=== PATIENT | female | born 1995 | race Caucasian/White ===

== ENCOUNTER 2019-10-27 18:20 | Emergency (ER) | payer BC ==
[2019-10-27] MEDS ORDERED: ONDANSETRON HCL INJ/PF 4 MG/2 ML SDV IV ONE ×2 (20:18→23:07)
--- NOTE | 2019-10-27 20:25 | ER Document Report ---
ED Medical Screen (RME) - General Chief Complaint: Nausea/Vomiting Stated Complaint: VOMITING Time Seen by Provider: 10/27/19 20:12 TRAVEL OUTSIDE OF THE [place] IN LAST 30 DAYS: No - HPI Notes: 10/27/19 20:24 24-year-old female to the emergency department with complaints of nausea and vomiting that has been ongoing for over 1 week. She states that she initially started with left upper quadrant abdominal pain. She presented to an urgent care and was tested for H. pylori. She states that it came back positive. She states she does have a history of GERD but has never been diagnosed with H. pylori before. She states she was started on Flagyl, clarithromycin, and amoxicillin. She states that since she has been starting those antibiotics she has had increasingly worsening vomiting. She states she cannot count how many times she is vomited today. She cannot keep anything down. She has a heart rate in triage today of 124. She denies any fevers or chills. She states now her entire upper abdomen is hurting her. I performed a brief medical screening exam on the patient determined that she will need further evaluation and management by main side provider. I have placed initial orders to joiner helper in her treatment plan tonight. - Related Data Allergies/Adverse Reactions: insect venom Allergy (Verified 10/27/19 20:12) beeswax Adverse Reaction (Verified 10/27/19 20:12) Home Medications: Omeprazole, Amoxicillin, Calrithyromycin, Metronidazole Physical Exam - Vital signs Vitals: Temp Pulse Resp BP Pulse Ox 98.3 F 124 H 22 H 144/87 H 100 10/27/19 18:24 10/27/19 18:24 10/27/19 18:24 10/27/19 18:24 10/27/19 18:24 Course - Vital Signs Vital signs: Temp Pulse Resp BP Pulse Ox 98.3 F 124 H 22 H 144/87 H 100 10/27/19 18:24 10/27/19 18:24 10/27/19 18:24 10/27/19 18:24 10/27/19 18:24
[2019-10-27] MEDS: NORMAL SALINE 1000 ML 1,000 ML IV PRN ×2 (20:55→22:20)
[2019-10-27 20:59] LABS: ABSOLUTE NEUT (AUTO) 13.6 10^3/uL (1.7-8.2); BASOPHILS % (AUTO) 0.3 % (0-2); EOSINOPHILS % (AUTO) 0.3 % (0-6); HEMATOCRIT 39.8 % (36.0-47.0); HEMOGLOBIN 13.9 g/dL (12.0-15.5); LYMPHOCYTES % (AUTO) 11.9 % (13-45); MEAN CORPUSCULAR HGB CONC 34.9 g/dL (32.0-36.0); MEAN CORPUSCULAR VOLUME 86 fl (80-97); PLATELET COUNT 309 10^3/uL (150-450); RED BLOOD COUNT 4.63 10^6/uL (3.72-5.28); RED CELL DISTRIBUTION WIDTH 12.1 % (11.5-14.0); SEGMENTED NEUTROPHILS % (AUTO) 81.5 % (42-78); TOTAL CELLS COUNTED % (AUTO) 100 %; WHITE BLOOD COUNT 16.6 10^3/uL (4.0-10.5)
[2019-10-27 21:22] LABS: ALBUMIN 4.3 g/dL (3.5-5.0); ALKALINE PHOSPHATASE 66 U/L (38-126); ANION GAP 15 (5-19); ASPARTATE AMINO TRANSFERASE 15 U/L (14-36); BILIRUBIN,TOTAL 0.4 mg/dL (0.2-1.3); BLOOD UREA NITROGEN 9 mg/dL (7-20); CALCIUM 9.8 mg/dL (8.4-10.2); CARBON DIOXIDE 22 mmol/L (22-30); CHLORIDE 102 mmol/L (98-107); GLUCOSE 79 mg/dL (75-110); POTASSIUM 4.4 mmol/L (3.6-5.0); TOTAL PROTEIN 7.4 g/dL (6.3-8.2)
[2019-10-27] MEDS ORDERED: ACETAMINOPHEN 325 MG TABLET PO ONE (22:15)
--- NOTE | 2019-10-27 22:39 | ER Document Report ---
ED GI/ - General Chief Complaint: Nausea/Vomiting Stated Complaint: VOMITING Time Seen by Provider: 10/27/19 20:12 Notes: Patient is a 24-year-old female who presents to the emergency department with a chief complaint of upper abdominal pain. Patient was recently diagnosed with H. pylori by urgent care and was placed on Flagyl, clarithromycin, and amoxicillin. Patient states that since starting the antibiotic she was able to keep the an tibiotics down, but has vomited multiple times today. Patient also received fluids and Zofran in triage and states that she does feel better, but does have a little bit of pain. She has not vomited since she has been here. TRAVEL OUTSIDE OF THE [place] IN LAST 30 DAYS: No - Related Data Allergies/Adverse Reactions: insect venom Allergy (Verified 10/27/19 20:12) beeswax Adverse Reaction (Verified 10/27/19 20:12) Home Medications: Omeprazole, Amoxicillin, Calrithyromycin, Metronidazole Past Medical History - Social History Smoking Status: Current Every Day Smoker Family History: Reviewed & Not Pertinent Patient has suicidal ideation: No Patient has homicidal ideation: No Review of Systems - Review of Systems Notes: REVIEW OF SYSTEMS: CONSTITUTIONAL : Denies recent illness. Denies recent unintentional weight loss. Denies fever, chills, or sweats. EENT: Denies eye, ear, throat, or mouth pain, discharge, or symptoms. Denies nasal or sinus congestion. CARDIOVASCULAR: Denies chest pain. RESPIRATORY: Denies shortness of breath, cough, congestion, difficulty breathing, or wheezing. GASTROINTESTINAL: See HPI. GENITOURINARY: Denies difficulty urinating, burning, blood in urine, urgency or frequency. MUSCULOSKELETAL: Denies neck and back pain. Denies joint pain or swelling. SKIN: Denies rash, itchiness, or lesions HEMATOLOGIC : Denies easy bruising or bleeding. LYMPHATIC: Denies swollen, painful, enlarged glands. NEUROLOGICAL: Denies no numbness or tingling denies weakness. Denies headache. Denies altered mental status. Denies alteration in speech. PSYCHIATRIC: Denies stress, anxiety, alteration in sleep patterns, or depression. All other systems reviewed and negative. Physical Exam - Vital signs Vitals: Temp Pulse Resp BP Pulse Ox 98.3 F 124 H 22 H 144/87 H 100 10/27/19 18:24 10/27/19 18:24 10/27/19 18:24 10/27/19 18:24 10/27/19 18:24 - Notes Notes: PHYSICAL EXAMINATION: GENERAL: Appears well, healthy, well-nourished, no acute distress. HEAD: Normocephalic, atraumatic. EYES: PERRL, conjunctiva normal, all extraocular movements intact, sclera nonicteric ENT: Dry mucous membranes. NECK: Supple, no noticeable swelling, redness, rash. Normal range of motion. LUNGS: Equal breath sounds bilaterally and clear to auscultation. No wheezes rales or rhonchi. CARDIOVASCULAR: S1-S2, regular rate, regular rhythm. Radial pulses 2+, normal. ABDOMEN: Normoactive bowel sounds. Soft, mildly tender left upper abdomen, no guarding, no rebound tenderness, and no masses palpated. EXTREMITIES: Normal strength and range of motion, no pitting or edema. No cyanosis. NEUROLOGICAL: Moves all extremities upon command. Strength 5/5 in all extremities. PSYCH: Normal mood, normal affect. SKIN: Warm, dry. No rash, lesions, ulcerations noted. Normal skin turgor. Course - Re-evaluation Re-evalutation: 10/27/19 23:06 Patient has a leukocytosis of 16,600 with a shift to the left. Her chemistries are unremarkable and her hCG is negative. Urinalysis shows a large amount of leukocytes, consistent with a urinary tract infection. Patient denies any vaginal discharge. Her urine will be sent for culture.She states that she feels better with Zofran. She will be sent home with Zofran Dosepak. Patient presents with symptoms consistent with an acute cystitis. Vitals wnl. No history of fever, flank pain, or constitution symptoms to suggest ascending infection at this time. Patient is well in appearance, tolerating oral intake without difficulty. No focal abdominal tenderness to suggest acute appendicitis, biliary pathology, acute pancreatitis, tubo-ovarian abscesses, or pelvic inflammatory disease. Patient will be started on antibiotics at this time. A culture has been sent. They will be discharged with return precautions and follow-up recommendations. - Vital Signs Vital signs: Temp Pulse Resp BP Pulse Ox 98.6 F 90 22 H 127/66 H 100 10/27/19 22:38 10/27/19 23:21 10/27/19 18:24 10/27/19 23:21 10/27/19 23:21 - Laboratory Result Diagrams: 10/27/19 20:35 10/27/19 20:35 Laboratory results interpreted by me: 10/27/19 10/27/19 20:35 20:35 WBC 16.6 H Lymph % (Auto) 11.9 L Absolute Neuts (auto) 13.6 H Seg Neutrophils % 81.5 H Urine Ketones 20 H Ur Leukocyte Esterase LARGE H Urine Ascorbic Acid 20 H Discharge - Discharge Clinical Impression: Nausea and vomiting Qualifiers: Vomiting type: unspecified Vomiting Intractability: non-intractable Qualified Code(s): R11.2 - Nausea with vomiting, unspecified Abdominal pain Qualifiers: Abdominal location: left upper quadrant Qualified Code(s): R10.12 - Left upper quadrant pain Urinary tract infection Qualifiers: Urinary tract infection type: acute cystitis Hematuria presence: without hematuria Qualified Code(s): N30.00 - Acute cystitis without hematuria Condition: Stable Disposition: HOME, SELF-CARE Instructions: Antinausea Medication ([facility]), Intravenous (IV) Fluids ([facility]), Vomiting ([facility]) Additional Instructions: Your urine shows findings consistent with a urinary tract infection. Please take all the antibiotics as directed even if your symptoms have improved. Please follow-up with your primary care physician as needed. Return to emergency room if you develop fever >101F, persistent vomiting, become lethargic, have severe pain in your sides, or any other symptoms that are concerning to you. You are also being sent home with Zofran, medication for nausea. You can take 1-2 tabs every 4 hours as needed for nausea and vomiting. Please stop taking your amoxicillin and replace it with the Keflex that is prescribed to you today. Prescriptions: Cephalexin [Keflex] 500 mg PO BID #14 capsule Ondansetron [Zofran Odt 4 mg Tablet] 1 - 2 tab PO Q4H PRN #15 tab.rapdis PRN Reason: For Nausea/Vomiting
[2019-10-27 22:47] LABS: APPEARANCE,URINE CLOUDY; BILIRUBIN,URINE NEGATIVE (NEGATIVE); COLOR,URINE YELLOW; GLUCOSE, URINE NEGATIVE (NEGATIVE); KETONES,URINE 20 mg/dL (NEGATIVE); LEUKOCYTE ESTERASE,URINE LARGE (NEGATIVE); NITRITE,URINE NEGATIVE (NEGATIVE); PROTEIN,URINE NEGATIVE (NEGATIVE); URINE SPECIFIC GRAVITY 1.013; UROBILINOGEN,URINE NEGATIVE mg/dL (<2.0)
[2019-10-27] MEDS ORDERED: CEPHALEXIN 500 MG CAPSULE PO ONE (23:07)
[2019-10-27 23:24] VITALS: BP 127/66
== END 2019-10-27 23:25 | disposition home or self-care (01) ==
LOC: ER 18:20
DX: N30.00 Acute cystitis without hematuria (principal); R10.12 Left upper quadrant pain; R10.812 Left upper quadrant abdominal tenderness; R11.2 Nausea with vomiting, unspecified; F17.200 Nicotine dependence, unspecified, uncomplicated; Z91.038 Other insect allergy status; Z79.899 Other long term (current) drug therapy
CPT/HCPCS: 96376; 99284; 96361; 96374; 36415; 87086; 83690; 84703; 85025; 80053; 81001; J2405; J7030

== ENCOUNTER 2020-02-07 16:15 | Emergency (ER) | payer BC, OTHER ==
--- NOTE | 2020-02-07 16:35 | ER Document Report ---
ED Medical Screen (RME) - General Stated Complaint: DIZZINESS Time Seen by Provider: 02/07/20 16:30 Mode of Arrival: Ambulatory Information source: Patient Notes: 24-year-old female G1, P0 presents with right-sided flank pain that started at approximately noon today. Patient reports she woke up and felt dizzy. She laid down hoping she would feel better but she did not. She reports she has vomited 1 time today but that is not unusual since the . She has only ate 1 time today also. Denies pain with void. Denies vaginal bleeding. Denies fever or diarrhea. I have greeted and performed a rapid initial assessment of this patient. A comprehensive ED assessment and evaluation of the patient, analysis of test results and completion of the medical decision making process will be conducted by additional ED providers. TRAVEL OUTSIDE OF THE [place] IN LAST 30 DAYS: No - Related Data Allergies/Adverse Reactions: insect venom Allergy (Verified 10/27/19 20:12) beeswax Adverse Reaction (Verified 10/27/19 20:12) Physical Exam - Vital signs Vitals: Temp Pulse Resp BP Pulse Ox 98.1 F 84 14 141/85 H 98 02/07/20 16:20 02/07/20 16:20 02/07/20 16:20 02/07/20 16:20 02/07/20 16:20 Course - Vital Signs Vital signs: Temp Pulse Resp BP Pulse Ox 98.1 F 84 14 141/85 H 98 02/07/20 16:20 02/07/20 16:20 02/07/20 16:20 02/07/20 16:20 02/07/20 16:20
[2020-02-07 16:58] LABS: ABSOLUTE LYMPHOCYTES (AUTO) 1.5 10^3/uL (0.5-4.7); ABSOLUTE MONOCYTES (AUTO) 0.6 10^3/uL (0.1-1.4); BASOPHILS % (AUTO) 0.2 % (0-2); EOSINOPHILS % (AUTO) 0.2 % (0-6); HEMATOCRIT 39.4 % (36.0-47.0); HEMOGLOBIN 13.7 g/dL (12.0-15.5); LYMPHOCYTES % (AUTO) 21.3 % (13-45); MEAN CORPUSCULAR HEMOGLOBIN 30.5 pg (27.0-33.4); MEAN CORPUSCULAR HGB CONC 34.8 g/dL (32.0-36.0); MEAN CORPUSCULAR VOLUME 88 fl (80-97); MONOCYTES % (AUTO) 8.8 % (3-13); PLATELET COUNT 227 10^3/uL (150-450); RED CELL DISTRIBUTION WIDTH 12.9 % (11.5-14.0); SEGMENTED NEUTROPHILS % (AUTO) 69.5 % (42-78); TOTAL CELLS COUNTED % (AUTO) 100 %; WHITE BLOOD COUNT 7.2 10^3/uL (4.0-10.5)
[2020-02-07 17:15] LABS: ALBUMIN 4.4 g/dL (3.5-5.0); ALKALINE PHOSPHATASE 45 U/L (38-126); ANION GAP 8 (5-19); ASPARTATE AMINO TRANSFERASE 15 U/L (14-36); BILIRUBIN,TOTAL 0.3 mg/dL (0.2-1.3); BLOOD UREA NITROGEN 5 mg/dL (7-20); CALCIUM 9.9 mg/dL (8.4-10.2); CARBON DIOXIDE 26 mmol/L (22-30); CHLORIDE 103 mmol/L (98-107); GLUCOSE 94 mg/dL (75-110); POTASSIUM 4.5 mmol/L (3.6-5.0); TOTAL PROTEIN 7.6 g/dL (6.3-8.2)
--- NOTE | 2020-02-07 17:33 | RADIOLOGY REPORT (SQ) ---
EXAM DESCRIPTION: U/S [id number] TRNABD 1GES W/ODOP IMAGES COMPLETED DATE/TIME: 02/07/2020 5:23 pm REASON FOR STUDY: flank pain COMPARISON: None. TECHNIQUE: Transabdominal static and realtime grayscale images acquired of the pelvis. Additional se lected spectral and color Doppler images recorded. All images stored on PACs. bHCG: Not available. CLINICAL DATES: 10 weeks 2 days LIMITATIONS: None. FINDINGS: FETUS: Single Living intrauterine . ULTRASOUND EGA: 10 weeks 6 days ULTRASOUND FABIENNE: 08/29/2020 EFW: Not applicable less than 20 weeks. CRL: 4 cm FHR: 169 beats per minute. SURVEY: Too early to assess. AMNIOTIC FLUID: Adequate amount. PLACENTA: Not yet developed due to early gestation. SUBCHORIONIC BLEED: No SIZE OF BLEED: Not applicable. UTERUS: No masses. No anomalies. CERVICAL LENGTH: 4.1 cm Closed. RIGHT ADNEXA: Normal ovary with normal vascular flow. No adnexal free fluid. No adnexal masses. LEFT ADNEXA: Normal ovary with normal vascular flow. No adnexal free fluid. No adnexal masses. FREE FLUID: None. OTHER: No other significant finding. IMPRESSION: LIVING INTRAUTERINE . EGA 10 weeks 6 days Trimester of : First trimester - 0 to 13 weeks. TECHNICAL DOCUMENTATION: JOB ID: [id number] 2010 [employer]- All Rights Reserved rev-02/16 Reading location - IP/workstation name: [email or web address]
[2020-02-07] MEDS ORDERED: AMOXICILLIN TRIHYDRATE 500 MG CAPSULE PO ONE (17:45)
[2020-02-07] MEDS ORDERED: RINGERS SOLUTION,LACTATED 1,000 ML IV ONE (18:21)
[2020-02-07 19:04] LABS: APPEARANCE,URINE CLOUDY; BILIRUBIN,URINE NEGATIVE (NEGATIVE); COLOR,URINE YELLOW; GLUCOSE, URINE NEGATIVE (NEGATIVE); KETONES,URINE TRACE mg/dL (NEGATIVE); LEUKOCYTE ESTERASE,URINE SMALL (NEGATIVE); NITRITE,URINE NEGATIVE (NEGATIVE); PROTEIN,URINE NEGATIVE (NEGATIVE); URINE SPECIFIC GRAVITY 1.009; UROBILINOGEN,URINE NEGATIVE mg/dL (<2.0)
[2020-02-07] MEDS ORDERED: ACETAMINOPHEN 325 MG TABLET PO ONE (19:15)
[2020-02-07] MEDS ORDERED: ONDANSETRON HCL INJ/PF 4 MG/2 ML SDV IV ONE (19:15)
--- NOTE | 2020-02-07 20:25 | ER Document Report ---
ED Dizziness/Weakness - General Chief Complaint: Dizziness Stated Complaint: DIZZINESS Time Seen by Provider: 02/07/20 16:30 Primary Care Provider: AMARIS GRAY MD [ACTIVE PROVISIONAL STAFF] - Follow up in 1 week (call for an appointment) Mode of Arrival: Ambulatory Information source: Patient Notes: 24-year-old female with no previous medical problems who states she is approximately 6 weeks . No care. Did home test. Presents to the emergency room complaining of dizziness that started yesterday increases with movement. Feels like the room is spinning. Denies any head trauma or head injury. Also complains of nausea with vomiting which she states is chronic since she found out she was . She is a 1 para 0. A lso complaining of some pain to her right lower back. She denies fevers. No urinary symptoms. No medications for her symptoms. TRAVEL OUTSIDE OF THE [place] IN LAST 30 DAYS: No - Related Data Allergies/Adverse Reactions: insect venom Allergy (Verified 10/27/19 20:12) beeswax Adverse Reaction (Verified 10/27/19 20:12) Past Medical History - General Information source: Patient - Social History Smoking Status: Former Smoker Frequency of alcohol use: None Drug Abuse: None Lives with: Family Family History: Reviewed & Not Pertinent Patient has homicidal ideation: No Review of Systems - Review of Systems Constitutional: No symptoms reported EENT: No symptoms reported Cardiovascular: No symptoms reported Respiratory: No symptoms reported Gastrointestinal: Nausea, Vomiting. denies: Abdominal pain Genitourinary: No symptoms reported Female Genitourinary: . denies: Vaginal discharge, Vaginal bleeding Musculoskeletal: Back pain Neurological/Psychological: Other - Dizziness. denies: Headaches -: Yes All other systems reviewed and negative Physical Exam - Vital signs Vitals: Temp Pulse Resp BP Pulse Ox 98.1 F 84 14 141/85 H 98 02/07/20 16:20 02/07/20 16:20 02/07/20 16:20 02/07/20 16:20 02/07/20 16:20 - General General appearance: Appears well, Alert In distress: Mild - HEENT Head: Normocephalic Eyes: Normal Cornea: Normal Extraocular movements intact: Yes Pupils: PERRL Fundascopic: Normal External canal: Normal Tympanic membrane: Bulging - Left tympanic membrane with erythema, bulging, Sinus: Normal Nasal: Normal Pharynx: Normal Neck: Normal. No: Kernig's, Lymphadenopathy, Meningismus - Respiratory Respiratory status: No respiratory distress Chest status: Nontender Breath sounds: Normal Chest palpation: Normal - Cardiovascular Rhythm: Regular Heart sounds: Normal auscultation Murmur: No - Abdominal Inspection: Normal Distension: No distension Bowel sounds: Normal Tenderness: Nontender Organomegaly: No organomegaly - Back Back: Tender - There is tenderness noted to the right lower back but not over the vertebral spine. Nontender over the sciatic notch. No muscle spasms. Negative straight leg raising bilaterally.. No: Deformity/step-off, CVA tenderness, Vertebra tenderness - Extremities General upper extremity: Normal inspection, Nontender, Normal color, Normal ROM, Normal temperature General lower extremity: Normal inspection, Nontender, Normal color, Normal ROM, Normal temperature, Normal weight bearing. No: Cynthia's sign - Neurological Cognition: Normal Orientation: AAOx4 Speech: Normal Motor strength normal: LUE, RUE, LLE, RLE Notes: Nystagmus noted to the left - Skin Skin Temperature: Warm Skin Moisture: Dry Skin Color: Normal Course - Re-evaluation Re-evalutation: 02/07/20 20:18 Patient is resting comfortably currently asymptomatic. Tolerates p.o. fluids. Reviewed all test results with patient. Counseled to take medications as pr escribed. Can also take Tylenol as needed for pain. Will prescribe meclizine for vertigo patient was counseled to take only if the amoxicillin is not working for the ear infection. She was counseled on need to follow-up with an GAS BLENDER. She was given strict return to the emergency room guidelines. Return for any new or worsening symptoms. All questions were answered. Patient verbalizes understanding and agrees with plan of care. 02/07/20 20:22 - Vital Signs Vital signs: Temp Pulse Resp BP Pulse Ox 98.2 F 82 18 130/46 H 100 02/07/20 20:30 02/07/20 20:30 02/07/20 20:30 02/07/20 20:30 02/07/20 20:30 - Laboratory Result Diagrams: 02/07/20 16:41 02/07/20 16:41 Laboratory results interpreted by me: 02/07/20 02/07/20 16:41 18:46 Sodium 136.8 L BUN 5 L Beta HCG, Quant [id number] H Urine Ketones TRACE H Ur Leukocyte Esterase SMALL H - Diagnostic Test Radiology reviewed: Reports reviewed Discharge - Discharge Clinical Impression: Vertigo Left otitis media Qualifiers: Otitis media type: unspecified Qualified Code(s): H66.92 - Otitis media, unspecified, left ear Back pain Qualifiers: Back pain location: low back pain Chronicity: acute Back pain laterality: right Sciatica presence: without sciatica Qualified Code(s): M54.5 - Low back pain Condition: Stable Disposition: HOME, SELF-CARE Instructions: Antinausea Medication ([facility]), Low Back Pain ([facility]), Otitis Media ([facility]), Vertigo ([facility]) Additional Instructions: Tylenol as needed for pain. Encourage fluids, Zofran as needed for nausea and vomiting. Antibiotics as prescribed. Outpatient with OB as discussed. Meclizine if needed for the dizziness. Return for any new or worsening symptoms. Prescriptions: Amoxicillin 1 tab PO TID 10 Days #29 tab Meclizine HCl [Antivert 25 mg Tablet] 25 mg PO TID PRN #21 tablet PRN Reason: Ondansetron [Zofran Odt 4 mg Tablet] 1 tab PO Q4H PRN #15 tab.rapdis PRN Reason: For Nausea/Vomiting Referrals: AMARIS GRAY MD [ACTIVE PROVISIONAL STAFF] - Follow up in 1 week (call for an appointment)
[2020-02-07 20:33] VITALS: BP 130/46
== END 2020-02-07 20:34 | disposition home or self-care (01) ==
LOC: ER 16:15
DX: O09.31 Supervision of pregnancy with insufficient antenatal care, first trimester (principal); H66.92 Otitis media, unspecified, left ear; M54.5 Low back pain; R42 Dizziness and giddiness; R10.9 Unspecified abdominal pain; O26.91 Pregnancy related conditions, unspecified, first trimester; Z3A.01 Less than 8 weeks gestation of pregnancy
CPT/HCPCS: 99284; 96361; 96374; 36415; 87086; 84702; 85025; 80053; 81001; 76801; J2405; J7120

== ENCOUNTER 2020-08-23 17:55 | Outpatient (CLI) | payer OTHER ==
[2020-08-23 18:36] LABS: APPEARANCE,URINE SLIGHTLY-CLOUDY; BILIRUBIN,URINE NEGATIVE (NEGATIVE); COLOR,URINE YELLOW; GLUCOSE, URINE NEGATIVE (NEGATIVE); KETONES,URINE NEGATIVE (NEGATIVE); LEUKOCYTE ESTERASE,URINE LARGE (NEGATIVE); NITRITE,URINE NEGATIVE (NEGATIVE); PROTEIN,URINE NEGATIVE (NEGATIVE); URINE SPECIFIC GRAVITY 1.009; UROBILINOGEN,URINE NEGATIVE mg/dL (<2.0)
[2020-08-23 18:51] LABS: URINE AMPHETAMINES SCREEN NEGATIVE; URINE BARBITURATES SCREEN NEGATIVE; URINE BENZODIAZEPINES SCREEN NEGATIVE; URINE COCAINE SCREEN NEGATIVE; URINE MARIJUANA (THC) SCREEN NEGATIVE; URINE METHADONE SCREEN NEGATIVE; URINE PHENCYCLIDINE SCREEN NEGATIVE
--- NOTE | 2020-08-23 19:10 | Non Stress Test Report ---
Non Stress Test Datetime Report Generated by CPN: 08/23/2020 19:10 DEMOGRAPHIC EGA NST: 38.4 INDICATION Indication for Study (NST) Other: IUP 38.4, SROM MONITORING Monitor Explained: Monitor Explained; Test Explained; Patient Verbalized Understanding Time on Monitor: 08/23/2020 18:25 Time off Monitor: 08/23/2020 19:08 NST Duration: 43 NST INTERVENTIONS NST Interventions: PO Hydration; Reposition Patient Physician Notified NST: Dr. Malone BABY A: [id number] BABY A Movement : Present Contraction Frequency : irregular FHR Baseline : 150 Accelerations : 15X15 Decelerations : None Variability : Moderate 6-25bpm NST Review: Meets Criteria for Reactive NST NST Review and Verified By : Matthew Villagomez RN NST Results: Reactive NST REPORT Report Trigger: Send Report
== END 2020-08-23 19:08 | disposition home or self-care (01) ==
LOC: LC 17:55
PROVIDERS: ATTEND Obstetrics & Gynecology Gynecology
DX: O47.1 False labor at or after 37 completed weeks of gestation (principal); O99.333 Smoking (tobacco) complicating pregnancy, third trimester; F17.210 Nicotine dependence, cigarettes, uncomplicated; Z3A.38 38 weeks gestation of pregnancy; Z71.6 Tobacco abuse counseling
CPT/HCPCS: 80307; 81005; 82962; 84112; 94760

== ENCOUNTER 2020-08-28 04:29 | Outpatient (CLI) | payer OTHER ==
[2020-08-28 05:12] LABS: APPEARANCE,URINE SLIGHTLY-CLOUDY; BILIRUBIN,URINE NEGATIVE (NEGATIVE); COLOR,URINE STRAW; GLUCOSE, URINE NEGATIVE (NEGATIVE); KETONES,URINE NEGATIVE (NEGATIVE); LEUKOCYTE ESTERASE,URINE SMALL (NEGATIVE); NITRITE,URINE NEGATIVE (NEGATIVE); PROTEIN,URINE NEGATIVE (NEGATIVE); URINE SPECIFIC GRAVITY 1.005; UROBILINOGEN,URINE NEGATIVE mg/dL (<2.0)
[2020-08-28 05:38] LABS: URINE AMPHETAMINES SCREEN NEGATIVE; URINE BARBITURATES SCREEN NEGATIVE; URINE BENZODIAZEPINES SCREEN NEGATIVE; URINE COCAINE SCREEN NEGATIVE; URINE MARIJUANA (THC) SCREEN NEGATIVE; URINE METHADONE SCREEN NEGATIVE; URINE PHENCYCLIDINE SCREEN NEGATIVE
--- NOTE | 2020-08-28 06:46 | Non Stress Test Report ---
Non Stress Test Datetime Report Generated by CPN: 08/28/2020 06:46 DEMOGRAPHIC EGA NST: 39.2 INDICATION Indication for Study (NST) Other: lc MONITORING Monitor Explained: Monitor Explained; Test Explained; Patient Verbalized Understanding Time on Monitor: 08/28/2020 04:50 Time off Monitor: 08/28/2020 06:05 NST Duration: 75 NST INTERVENTIONS NST Interventions: Reposition Patient Physician Notified NST: Dr Jake BABY A: [id number] BABY A Movement : Present Contraction Frequency : irr FHR Baseline : 135 Accelerations : 15X15 Decelerations : None Variability : Moderate 6-25bpm NST Review: Meets Criteria for Reactive NST NST Review and Verified By : Kortney Arias RN NST Results: Reactive NST REPORT Report Trigger: Send Report
== END 2020-08-28 06:48 | disposition home or self-care (01) ==
LOC: LC 04:29
PROVIDERS: ATTEND Obstetrics & Gynecology
DX: O47.1 False labor at or after 37 completed weeks of gestation (principal); O99.332 Smoking (tobacco) complicating pregnancy, second trimester; F17.210 Nicotine dependence, cigarettes, uncomplicated; Z71.6 Tobacco abuse counseling; Z3A.39 39 weeks gestation of pregnancy
CPT/HCPCS: 59025; 80307; 81005

== ENCOUNTER 2020-08-30 10:29 | Outpatient (CLI) | payer OTHER ==
[2020-08-30 11:20] LABS: APPEARANCE,URINE CLEAR; BILIRUBIN,URINE NEGATIVE (NEGATIVE); COLOR,URINE STRAW; GLUCOSE, URINE NEGATIVE (NEGATIVE); KETONES,URINE NEGATIVE (NEGATIVE); LEUKOCYTE ESTERASE,URINE SMALL (NEGATIVE); NITRITE,URINE NEGATIVE (NEGATIVE); PROTEIN,URINE NEGATIVE (NEGATIVE); URINE SPECIFIC GRAVITY 1.005; UROBILINOGEN,URINE NEGATIVE mg/dL (<2.0)
--- NOTE | 2020-08-30 11:27 | Non Stress Test Report ---
Non Stress Test Datetime Report Generated by CPN: 08/30/2020 11:27 DEMOGRAPHIC EGA NST: 39.4 INDICATION Indication for Study (NST) Other: LC- ctxs MONITORING Monitor Explained: Monitor Explained; Test Explained; Patient Verbalized Understanding Time on Monitor: 08/30/2020 10:53 Time off Monitor: 08/30/2020 11:20 NST Duration: 27 NST INTERVENTIONS NST Interventions: PO Hydration Physician Notified NST: Dr Valenzuela BABY A: [id number] BABY A Movement : Present Contraction Frequency : 5-10 FHR Baseline : 135 Accelerations : 15X15 Decelerations : None Variability : Moderate 6-25bpm NST Review: Meets Criteria for Reactive NST NST Review and Verified By : Deangelo Murrell RN NST Results: Reactive NST REPORT Report Trigger: Send Report
[2020-08-30 11:37] LABS: URINE AMPHETAMINES SCREEN NEGATIVE; URINE BARBITURATES SCREEN NEGATIVE; URINE BENZODIAZEPINES SCREEN NEGATIVE; URINE COCAINE SCREEN NEGATIVE; URINE MARIJUANA (THC) SCREEN NEGATIVE; URINE METHADONE SCREEN NEGATIVE; URINE PHENCYCLIDINE SCREEN NEGATIVE
[2020-08-30] MEDS ORDERED: HYDROXYZINE PAMOATE 50 MG CAPSULE PO ONE (12:22)
== END 2020-08-30 12:35 | disposition home or self-care (01) ==
LOC: LC 10:29
PROVIDERS: ATTEND Obstetrics & Gynecology
DX: Z34.93 Encounter for supervision of normal pregnancy, unspecified, third trimester (principal)
CPT/HCPCS: 59025; 80307; 81005; 84112

== ENCOUNTER 2020-09-03 06:50 | Outpatient (CLI) | payer OTHER ==
[2020-09-03 07:26] LABS: APPEARANCE,URINE SLIGHTLY-CLOUDY; BILIRUBIN,URINE NEGATIVE (NEGATIVE); COLOR,URINE STRAW; GLUCOSE, URINE NEGATIVE (NEGATIVE); KETONES,URINE NEGATIVE (NEGATIVE); LEUKOCYTE ESTERASE,URINE MODERATE (NEGATIVE); NITRITE,URINE NEGATIVE (NEGATIVE); PROTEIN,URINE NEGATIVE (NEGATIVE); URINE SPECIFIC GRAVITY 1.006; UROBILINOGEN,URINE NEGATIVE mg/dL (<2.0)
[2020-09-03 07:50] LABS: URINE AMPHETAMINES SCREEN NEGATIVE; URINE BARBITURATES SCREEN NEGATIVE; URINE BENZODIAZEPINES SCREEN NEGATIVE; URINE COCAINE SCREEN NEGATIVE; URINE MARIJUANA (THC) SCREEN NEGATIVE; URINE METHADONE SCREEN NEGATIVE; URINE PHENCYCLIDINE SCREEN NEGATIVE
--- NOTE | 2020-09-03 08:01 | Non Stress Test Report ---
Non Stress Test Datetime Report Generated by CPN: 09/03/2020 08:00 DEMOGRAPHIC Test Number: 4 EGA NST: 40.1 INDICATION Indication for Study (NST) Other: IUP at 40.1; Not in labor VITAL SIGNS Temperature - NST: 97.3 Pulse - NST: 100 RESP - NST: 18 NBPSYS NST: 115 NBPDIA NST: 57 MONITORING Monitor Explained: Monitor Explained; Test Explained; Patient Verbalized Understanding Time on Monitor: 09/03/2020 07:02 Time off Monitor: 09/03/2020 07:45 NST Duration: 43 NST INTERVENTIONS NST Interventions: PO Hydration Physician Notified NST: Dr. Valenzuela BABY A: [id number] BABY A Movement : Present Contraction Frequency : Irreg FHR Baseline : 135 Accelerations : 15X15 Decelerations : None Variability : Moderate 6-25bpm NST Review: Meets Criteria for Reactive NST NST Review and Verified By : SAutry NST REPORT Report Trigger: Send Report
== END 2020-09-03 07:54 | disposition home or self-care (01) ==
LOC: LC 06:50
PROVIDERS: ATTEND Obstetrics & Gynecology
DX: O47.1 False labor at or after 37 completed weeks of gestation (principal); O99.333 Smoking (tobacco) complicating pregnancy, third trimester; F17.210 Nicotine dependence, cigarettes, uncomplicated; Z3A.40 40 weeks gestation of pregnancy; Z71.6 Tobacco abuse counseling
CPT/HCPCS: 59025; 80307; 81005

== ENCOUNTER 2020-09-04 06:33 | Outpatient (CLI) | payer OTHER ==
[2020-09-04 07:43] LABS: APPEARANCE,URINE CLEAR; BILIRUBIN,URINE NEGATIVE (NEGATIVE); COLOR,URINE COLORLESS; GLUCOSE, URINE NEGATIVE (NEGATIVE); KETONES,URINE NEGATIVE (NEGATIVE); LEUKOCYTE ESTERASE,URINE TRACE (NEGATIVE); NITRITE,URINE NEGATIVE (NEGATIVE); PROTEIN,URINE NEGATIVE (NEGATIVE); URINE SPECIFIC GRAVITY 1.005; UROBILINOGEN,URINE NEGATIVE mg/dL (<2.0)
--- NOTE | 2020-09-04 07:46 | Non Stress Test Report ---
Non Stress Test Datetime Report Generated by CPN: 09/04/2020 07:46 DEMOGRAPHIC EGA NST: 40.2 INDICATION Indication for Study (NST) Other: ctx MONITORING Monitor Explained: Monitor Explained; Test Explained; Patient Verbalized Understanding Time on Monitor: 09/04/2020 07:20 Time off Monitor: 09/04/2020 07:44 NST Duration: 24 NST INTERVENTIONS NST Interventions: None Physician Notified NST: Dr Fournier BABY A: [id number] BABY A Movement : Present Contraction Frequency : irregular FHR Baseline : 135 Accelerations : 15X15 Decelerations : None Variability : Moderate 6-25bpm NST Review: Meets Criteria for Reactive NST NST Review and Verified By : B Baidy RN NST Results: Reactive NST REPORT Report Trigger: Send Report
[2020-09-04 08:03] LABS: URINE AMPHETAMINES SCREEN NEGATIVE; URINE BARBITURATES SCREEN NEGATIVE; URINE BENZODIAZEPINES SCREEN NEGATIVE; URINE COCAINE SCREEN NEGATIVE; URINE MARIJUANA (THC) SCREEN NEGATIVE; URINE METHADONE SCREEN NEGATIVE; URINE PHENCYCLIDINE SCREEN NEGATIVE
== END 2020-09-04 08:09 | disposition home or self-care (01) ==
LOC: LC 06:33
PROVIDERS: ATTEND Obstetrics & Gynecology
DX: O47.1 False labor at or after 37 completed weeks of gestation (principal); Z3A.40 40 weeks gestation of pregnancy
CPT/HCPCS: 59025; 80307; 81005

== ENCOUNTER 2020-09-04 15:09 | Inpatient (IN) | payer OTHER ==
[2020-09-04] MEDS ORDERED: RINGERS SOLUTION,LACTATED 1,000 ML IV ONE (19:17)
[2020-09-04] MEDS ORDERED: OXYTOCIN 10 UNIT/ML VIAL ONE (19:46)
[2020-09-04] MEDS ORDERED: MISOPROSTOL 0.2 MG TABLET ONE (19:46)
[2020-09-04] MEDS ORDERED: LIDOCAINE 1% INJ-PF (10 MG/ML) 30 ML SDV ONE (19:47)
[2020-09-04] MEDS ORDERED: OXYTOCIN/0.9 % SODIUM CHLORIDE 30 UNIT/500 ML RTUINJ ONE (19:47)
[2020-09-04] MEDS ORDERED: OXYTOCIN/0.9 % SODIUM CHLORIDE 30 UNIT/500 ML RTUINJ IV PRN (19:53)
[2020-09-04 19:58] LABS: ABSOLUTE LYMPHOCYTES (AUTO) 2.1 10^3/uL (0.5-4.7); ABSOLUTE MONOCYTES (AUTO) 1.3 10^3/uL (0.1-1.4); ABSOLUTE NEUT (AUTO) 12.1 10^3/uL (1.7-8.2); BASOPHILS % (AUTO) 0.1 % (0-2); EOSINOPHILS % (AUTO) 0.2 % (0-6); HEMATOCRIT 33.6 % (36.0-47.0); HEMOGLOBIN 11.6 g/dL (12.0-15.5); LYMPHOCYTES % (AUTO) 13.6 % (13-45); MEAN CORPUSCULAR HEMOGLOBIN 30.2 pg (27.0-33.4); MEAN CORPUSCULAR HGB CONC 34.6 g/dL (32.0-36.0); MEAN CORPUSCULAR VOLUME 88 fl (80-97); MONOCYTES % (AUTO) 8.1 % (3-13); PLATELET COUNT 161 10^3/uL (150-450); RED BLOOD COUNT 3.84 10^6/uL (3.72-5.28); RED CELL DISTRIBUTION WIDTH 13.6 % (11.5-14.0); TOTAL CELLS COUNTED % (AUTO) 100 %; WHITE BLOOD COUNT 15.5 10^3/uL (4.0-10.5)
[2020-09-04] MEDS: RINGERS SOLUTION,LACTATED 1,000 ML IV PRN (20:38)
[2020-09-04] MEDS ORDERED: ROPIVACAINE HCL 0.2% INJ/PF (2 MG/ML) 20 ML SDV ONE (21:20)
[2020-09-04] MEDS ORDERED: FENTANYL/BUPIVACAINE/NS/PF 300 MCG/150 ML RTUINJ EPI ONE (21:20)
[2020-09-04] MEDS ORDERED: EPHEDRINE SULFATE INJ 50 MG/1 ML AMPULE ONE (21:20)
--- NOTE | 2020-09-04 21:50 | Admission Physical ---
Datetime Report Generated by CPN: 09/04/2020 21:49 CURRENT ADMISSION Chief Complaint: Uterine Contractions Indication for Induction: Post Dates Indication for Induction- Other: Latent labor at 3cm Admit Impression : Term, Intrauterine Admit Plan: Admit to Unit; Initiate Labor Augmentation Protocol ALLERGIES Medication Allergies: No Medication Allergies: beeswax (09/04/2020); insect venom (09/04/2020) Latex: No Latex Allergies OBSTETRICAL HISTORY EDC: 09/02/2020 00:00 : 1 Para: 0 Term: 0 : 0 SAB: 0 IAB: 0 Ectopic: 0 Livin Cesareans: 0 VBACs: 0 Multiple Births: 0 Gestational Diabetes: No Rh Sensitization: No Incompetent Cervix: No NORM: No Infertility: No ART Treatment: No Uterine Anomaly: No IUGR: No Hx Previous C/S: No Macrosomia: No Hx Loss/Stillborn: No PIH: No Hx : No Placenta Previa/Abruption: No Depression/PP Depression: No PTL/PROM: No Post Hemorrhage: No Current Procedures: Ultrasound Obstetrical History Comments: G1:current SEE RECORDS Alcohol: No Marijuana : No Cocaine: No Other Illicit Drugs: No Cigarettes: Current Some Day Smoker. 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 Heart Disease: No Hosp/Surgery: Yes Autoimmune Disorder: No Anesthetic Complications: No Kidney Disease: Yes Abnormal Pap Smear: No Neuro/Epilepsy: No Psychiatric Disorders: No Other Medical Diseases: No Hepatitis/Liver Disease: No Significant Family History: No Varicosities/Phlebitis: No Trauma/Violence : No Thyroid Dysfunction: No Medical History Comments: kidney infection 2 years ago INFECTIOUS HISTORY Gonorrhea: No Genital Herpes: No Chlamydia: No Tuberculosis: No Syphilis: No Hepatitis: No HIV/AIDS Exposure: No Rash or Viral Illness: Unknown HPV: No Infectious History Comments: may had covid PHYSICAL EXAM General: Normal HEENT: Normal Neurologic: Normal Thyroid: Deferred Heart: Normal Lungs: Normal Breast: Deferred Back: Normal Abdomen: Normal Genitourinary Exam: Normal Extremities: Normal DTRs: Normal Pelvic Type: Adequate Vital Signs: Reviewed VAGINAL EXAM Dilatation: 3 Effacement: 80 Station: -3 Contraction Comments: q 3 MEMBRANES Membranes: Intact FETUS A EGA: 40.2 Monitoring: External US FHR- Baseline: 145 Variability: Moderate 6-25bpm Accelerations: 15X15 Decelerations: None FHR Category: Category I Presentation: Vertex Admit Comment: 24yo at 40+2ega presents for evaluation from office for contractions. She was here earlier today with cvx 1cm. upon evaluation in the office she was 2-3cm and now after 4hours 3cm. She had initially desired unmedicated labor and offered for patient to discharge due to desire. She now due to discomfort would like to be admitted and augmented and desires epidural. She has gained 70# in . GBS negative. EFW 8#15oz on 08/26. Late to care at 30wks. Reviewed risks of excessive weight gain in and potential macrosomia. Reviewed risks of shoulder dystocia and possible need for c/s if CPD. Anticipate . reassuring FWB PLANS FOR LABOR AND DELIVERY Labor and Delivery: None Pain Management: Natural Feeding Preference: Breast Benefit of Breast Feed Discussed: Yes Circumcision: N/A INFORMED CONSENT Informed Consent Obtained: Vaginal Delivery; Risks, Benefits and Alternatives Discussed Signature: with User ID: [email or web address]
[2020-09-05] MEDS: RINGERS SOLUTION,LACTATED 1,000 ML IV PRN ×2 (02:45→13:31)
[2020-09-05] MEDS ORDERED: AMPICILLIN SOD INJ 2 GM VIAL ONE (07:47)
[2020-09-05] MEDS: AMPICILLIN SODIUM 2 GM in NORMAL SALINE 100 ML IV SCH ×4 (07:54→23:51)
[2020-09-05] MEDS ORDERED: ROPIVACAINE HCL 0.2% INJ/PF (2 MG/ML) 20 ML SDV ONE (09:43)
--- NOTE | 2020-09-05 11:08 | Warning Signs in Babies ---
VOD Warning Signs Datetime Report Generated by N: 09/05/2020 11:08 VOD#608 -Warning Signs in Babies: Viewed with Parent(s)/Family (09/05/2020 11:08:Luis Price RN)
[2020-09-05] MEDS ORDERED: ACETAMINOPHEN 1,000 MG/100 ML RTUPB IV ONE (12:38)
[2020-09-05] MEDS ORDERED: ACETAMINOPHEN 1,000 MG/100 ML RTUPB IV PRN (12:41)
[2020-09-05] MEDS ORDERED: BENZOCAINE/MENTHOL AEROSOL SPRAY 56 ML ONE (15:22)
[2020-09-05] MEDS ORDERED: IBUPROFEN 800 MG TABLET PO ONE (16:50)
[2020-09-05] MEDS ORDERED: IBUPROFEN 800 MG TABLET ONE (16:52)
[2020-09-05] MEDS ORDERED: NA PHOS,M-B/NA PHOS,DI-BA (ADULT) 133 ML ENEMA PR PRN ×2 (17:02→17:21)
[2020-09-05] MEDS ORDERED: ACETAMINOPHEN 650 MG SUPP.RECT PR PRN ×2 (17:02→17:21)
[2020-09-05] MEDS ORDERED: MAGNESIUM HYDROXIDE SUSP 30 ML UDCUP PO PRN ×2 (17:02→17:21)
[2020-09-05] MEDS ORDERED: OXYTOCIN/0.9 % SODIUM CHLORIDE 30 UNIT/500 ML RTUINJ IV PRN ×2 (17:02→17:21)
[2020-09-05] MEDS ORDERED: ACETAMINOPHEN 325 MG TABLET PO PRN ×2 (17:02→17:21)
[2020-09-05] MEDS ORDERED: GLYCERIN/WITCH HAZEL LEAF 1 EACH MED..WIPE TP PRN ×2 (17:02→17:21)
[2020-09-05] MEDS ORDERED: BENZOCAINE/MENTHOL AEROSOL SPRAY 56 ML TOP PRN ×2 (17:02→17:21)
[2020-09-05] MEDS ORDERED: DIPH/PERTUSS(ACELL)/TETANUS VAC/PF 0.5 ML SYR (>=10YO) IM PRN ×2 (17:02→17:21)
[2020-09-05] MEDS ORDERED: ACETAMINOPHEN WITH CODEINE #3 TABLET PO PRN ×4 (17:02→17:21)
[2020-09-05] MEDS ORDERED: PSEUDOEPHEDRINE HCL 30 MG TABLET PO PRN ×2 (17:02→17:21)
[2020-09-05] MEDS ORDERED: DIBUCAINE 1% OINTMENT 28 GM TP PRN ×2 (17:02→17:21)
[2020-09-05] MEDS ORDERED: ZOLPIDEM TARTRATE 5 MG TABLET PO PRN ×2 (17:02→17:21)
[2020-09-05] MEDS ORDERED: PROMETHAZINE HCL 25 MG TABLET PO PRN ×2 (17:02→17:21)
[2020-09-05] MEDS ORDERED: PROMETHAZINE HCL INJ 25 MG/1 ML VIAL IV PRN ×2 (17:02→17:21)
[2020-09-05] MEDS ORDERED: MEASLES,MUMPS&RUBELLA VACC/PF 0.5 ML VIAL SUBCUT PRN ×2 (17:02→17:21)
[2020-09-05] MEDS ORDERED: PROMETHAZINE HCL 25 MG SUPP.RECT PR PRN ×2 (17:02→17:21)
[2020-09-05] MEDS ORDERED: DIPHENHYDRAMINE HCL 25 MG CAPSULE PO PRN ×2 (17:02→17:21)
[2020-09-05] MEDS ORDERED: MISOPROSTOL 0.2 MG TABLET PR PRN (17:21)
[2020-09-05] MEDS ORDERED: FERROUS SULFATE 325 MG TABLET PO SCH (18:00)
[2020-09-05] MEDS ORDERED: DOCUSATE SODIUM 100 MG CAPSULE PO SCH (18:00)
[2020-09-05] MEDS: DOCUSATE SODIUM 100 MG CAPSULE PO SCH (18:01)
[2020-09-05] MEDS: FERROUS SULFATE 325 MG TABLET PO SCH (18:01)
--- NOTE | 2020-09-05 18:18 | Birth Certificate Data ---
Cert Data Datetime Report Generated by Peri: 09/05/2020 18:18 CERTIFICATE DATA Delivery Provider: Janette Joseph MD (08/23/2020 18:14:Mary Roper RN) 47a. Care: No (08/23/2020 18:14:Ynes Villagomez RN) 47b. Date of First Visit: 06/24/2020 00:00 (08/23/2020 18:14:Chandrika Murrell RN) 47c. Date of Last Visit: 09/04/2020 00:00 (Annotations: Data stored by [facility] on behalf of user) (08/23/2020 18:14:Chika Buck RN) 47d. Number of Visits: 9 (08/23/2020 18:14:Nohemy Lemus RN) 48a. Number of Prev Live Births: 0 (08/23/2020 18:14:Chandrika Murrell RN) 48b. Now Livin (08/23/2020 18:14:Chandrika Murrell RN) 48c. Live Births Now : 0 (08/23/2020 18:14:QS system process) 48e. Losses: 0 (08/23/2020 18:14:Chandrika Murrell RN) RISK FACTORS IN THIS 49a. Diabetes: No (08/23/2020 18:14:AMEYA Werner) 49b. Hypertension: No (08/23/2020 18:14:AMEYA Werner) 49c. Previous Births: 0 (08/23/2020 18:14:Chandrika Murrell RN) 49d. Stillborns: No (08/23/2020 18:14:AMEYA Werner) 49d. IUGR: No (08/23/2020 18:14:AMEYA Werner) 49e. Infertility Treatment: No (08/23/2020 18:14:AMEYA Werner) 49f. Previous Cesareans: 0 (08/23/2020 18:14:Chandrika Murrell RN) Mother's Height 50b. Height Inches: 67 (09/05/2020 17:20:QS system process) Mother's Weight 51a. Pre- Weight (lbs): 130 (08/23/2020 18:14:AMEYA Werner) 51b. Weight at Delivery (lbs): 222 (09/04/2020 06:43:QS system process) 52. Dt Last Normal Menses Began: 11/27/2019 00:00 (08/23/2020 18:14:AMEYA Werner) Infections Present/Treated 53a. Gonorrhea: No (08/23/2020 18:14:AMEYA Werner) Results this Hospital Visit : Negative (08/23/2020 18:14:Chandrika Murrell RN) 53b. Syphilis: No (08/23/2020 18:14:AMEYA Werner) 53c. Chlamydia: No (08/23/2020 18:14:AMEYA Werner) Results this Hospital Visit: Negative (08/23/2020 18:14:Chandrika Murrell RN) 53d. Hepatitis B: No (08/23/2020 18:14:AMEYA Werner) Results this Hospital Visit: Negative (08/23/2020 18:14:Chandrika Murrell RN) 53e. Hepatitis C: Negative (08/23/2020 18:14:Chandrika Murrell RN) 53h. Mother Tested for HBsAG: Yes (08/23/2020 18:14:Chandrika Murrell RN) 53i. Date Tested: 06/24/2020 00:00 (08/23/2020 18:14:Chandrika Murrell RN) 53j. Test Result: Negative (08/23/2020 18:14:Chandrika Murrell RN) Obstetric Procedures 54a, b, c. Obstetric Procedures: Ultrasound (08/23/2020 18:14:AMEYA Werner) Cigarette Smoking Cigarette Smoking: Current Some Day Smoker. [id number] (08/23/2020 18:14:Chandrika Murrell RN) 55a. 3 Months Before Preg - Ci (08/23/2020 18:14:Chandrika Murrell RN) 55b. 1st Trimester of Preg- Ci (08/23/2020 18:14:Chandrika Murrell RN) 55c. 2nd Trimester of Preg- Ci (08/23/2020 18:14:Chandrika Murrell RN) 55d. 3rd Trimester of Preg- Ci (08/23/2020 18:14:Chandrika Murrell RN) Onset of Labor 56a. PROM >12 Hrs: 15.55 (08/23/2020 18:14:QS system process) 56b. Precipitous Labor <3 Hrs: 12 (08/23/2020 18:14:QS system process) 56c. Prolonged Labor > 20 Hrs: 12 (08/23/2020 18:14:QS system process) 57a. Induction of Labor: Induction (08/23/2020 18:14:Mary Roper RN) 57c. Non-Vertex Presentation A: Vertex (08/23/2020 18:14:Luis Price RN) 57d. Steroids - Lung Mat: None (08/23/2020 18:14:Mary Roper RN) 57d. Steroids - Lung Mat: Not Applicable (08/23/2020 18:14:Mary Roper RN) 57g. Moderate/Heavy Meconium: Clear (09/04/2020 22:42:Nohemy Lemus RN) 57h. Intolerance of Labor: N/A (08/23/2020 18:14:Luis Price RN) 57i. Epidural/Spinal Anesthesia: Epidural (08/23/2020 18:14:Mary Roper RN) Method of Delivery 58a. Forceps - Unsuccessful A: N/A (08/23/2020 18:14:Luis Price RN) 58b. Vacuum - Unsuccessful A: Successful (08/23/2020 18:14:Mary Roper RN) 58c. Presentation at 58c. Presentation at - A : Vertex (08/23/2020 18:14:Luis Price RN) 58c. Presentation at - A : N/A (08/23/2020 18:14:Mary Roper RN) 58c. Presentation at - A : Cephalic (09/05/2020 03:20:Nohemy Lemus RN) Final Route and Method of Del 58d. Baby A Route/Delivery: Vaginal (09/05/2020 14:15:Luis Price RN) 58e. Trial of Labor Attempted: No (08/23/2020 18:14:Mary Roper RN) 58e. Trial of Labor Attempted A: N/A (08/23/2020 18:14:Mary Roper RN) 58e. Trial of Labor Attempted B: N/A (08/23/2020 18:14:Mary Roper RN) Maternal Morbidity 59b. 3rd or 4th Degree Lacs: Vaginal (08/23/2020 18:14:Luis Price RN) Birthweight Baby A: 4266 (08/23/2020 18:14:Peyton Hunter RN) 60a. Pounds : 9 (08/23/2020 18:14:QS system process) 60b. Ounces: 6 (08/23/2020 18:14:QS system process) 61. GA at Delivery Baby A: 40.3 (08/23/2020 18:14:Mary Roper RN) : Full Term- 39- 40.6 Weeks (08/23/2020 18:14:QS system process) 62a. 5 Minute Baby A: 9 (08/23/2020 18:14:QS system process)
--- NOTE | 2020-09-05 18:18 | Delivery Summary ---
Del Sum A-C Datetime Report Generated by CPN: 09/05/2020 18:18 DELIVERY PERSONNEL DELIVERY PERSONNEL: [id number] Delivery Doctor:: Janette Joseph MD Nurse Fleet Dispatch Manager Certified:: Iona Hogan CNM Labor and Delivery Nurse:: Luis Price RNcloth sponger Nurse:: Mary Roper RN Nursery Nurse:: Peyton Hunter RN Additional Personnel: : Chika Buck RN MATERNAL INFORMATION Delivery Anesthesia: Epidural Medications After Delivery: Pitocin 30 Units in 500ml NS/D5W; Cytotec 1000mcg Per Rectum/Vagina Delivery QBL: 250 Maternal Complications: Chorioamnionitis Provider Comments: Pt pushing for over 2 hrs, vacuum pull x [address] Joseph with 2 pop offs. Pt then pushed baby over perineum and delivered head. Turtle sign noted. Attempted del of ant shoulder with downward traction, Yuniel position assumed, attemped del of post shoulder, cord noted at shoulder. Suprapubic pressure per RN, then attempted del of ant shoulder per Dr. Joseph, cord reduced, infant delivered and placed on maternal abd. Cord quickly clamped and cut x2, infant handed off to warmer for resucitation. Manual placenta removal after increased bleeding noted, perez presentation with trailing membranes. Laceration on Lt Vaginal was bleeding, hemostasis acheived with repair. Mother and baby stable upon leaving the room. LABOR SUMMARY EDC: 09/02/2020 00:00 No. Babies in Womb: 1 Attempted: No Labor Anesthesia: Epidural LABOR INFORMATION Reason for Induction: Other Reason for Induction- Other: prodromal labor, postdates Onset of Labor: 09/05/2020 02:06 Complete Dilatation: 09/05/2020 11:24 Oxytocin: Induction Group B Beta Strep: negative Antibiotics # of Doses: 0 Name of Antibiotic Given: N/A Steroids Given: None Reason Steroids Not Administered: Not Applicable MEMBRANES Membranes Rupture Method: Artificial Rupture of Membranes: 09/04/2020 22:42 Length of Rupture (hr): 15.55 Amniotic Fluid Color: Clear Amniotic Fluid Amount: Scant Amniotic Fluid Odor: Normal STAGES OF LABOR Stage 1 hr: 9 Stage 1 min: 18 Stage 2 hr: 2 Stage 2 min: 51 Stage 3 hr: 0 Stage 3 min: 6 Total Time in Labor hr: 12 Total Time in Labor min: 15 VAGINAL DELIVERY Episiotomy: None Laceration #1: Vaginal Laceration Extension #1: First Degree Laceration #2: Vaginal Laceration Extension #2: Second Degree Laceration Repair: Yes Laceration Repair Note: 2.0 chromic for Lt vaginal sulcus repair and superficial rt labia repair done under epidural anesthesia Sponge Count Correct: Yes Sharps Count Correct: Yes CSECTION DELIVERY Primary Indication: N/A CSection Incidence: N/A Labor: N/A Elective: N/A CSection Incision: N/A BABY A INFORMATION Delivery Date/Time: 09/05/2020 14:15 Method of Delivery: Vaginal Nurse Controlled Delivery: No Born in Route : No : N/A Forceps: N/A Vacuum Extraction: Successful Shoulder Dystocia : Yes ASSISTED DELIVERY BABY A Indication for Assisted Delivery: maternal exhaustion Station Vacuum/Forcep Apply: +1 Position Vacuum/Forcep Apply: Left Occipital Anterior Vacuum Number of Pulls: 2 Vacuum/Forceps Comment: baby pulled to perineum, mother pushed babys head out spontaneously after that SHOULDER DYSTOCIA BABY A Delivery of Head: 09/05/2020 14:14 Time Head to Delivery : 1.0 1st Intervention to Resolve: Gentle Attempt at Traction, Assisted by Maternal Expulsive Efforts 2nd Intervention to Resolve: McRobert's Maneuver 3rd Intervention to Resolve: Suprapubic Pressure Verify NO Fundal Pressure: No Fundal Pressure Applied Arm Under Symphisis at Del: Right PRESENTATION/POSITION BABY A Presentation: Cephalic Cephalic Presentation: Vertex Vertex Position: Left Occipital Anterior Breech Presentation: N/A PLACENTA INFORMATION BABY A Placenta Delivery Time : 09/05/2020 14:21 Placenta Method of Delivery: Manual Removal Placenta Status: Delivered SCORES BABY A Heart Rate 1 min: >100 bpm Resp Effort 1 min: Good Cry Reflex Irritability 1 min: Cough or Sneeze or Pulls Away Muscle Tone 1 min: Some Flexion of Extremities Color 1 min: Blue/Pale Resuscitation Effort 1 min: Tactile Stimulation; Oxygen SCORE 1 MIN: 7 Heart Rate 5 min: >100 bpm Resp Effort 5 min: Good Cry Reflex Irritability 5 min: Cough or Sneeze or Pulls Away Muscle Tone 5 min: Active Motion Color 5 min: Body [place], Extremities Blue Resuscitation Effort 5 min: N/A SCORE 5 MIN: 9 INFANT INFORMATION BABY A Gestational Age at Delivery: 40.3 Gestational Status: Full Term- 39- 40.6 Weeks Outcome : Liveborn Condition : Stable Infant Sex: Female IDENTIFICATION BABY A Infant Verification Date/Time: 09/05/2020 15:02 ID Band Number: [id number] Mother's Name Verified: Yes Infant RN Verifying Infant: B Baidy RN/T Albert RN WEIGHT/LENGTH BABY A Infant Birthweight (gm): 4266 Weight (lb): 9 Infant Weight (oz): 6 Infant Length (in): 20.50 Length (cm): 52.07 CORD INFORMATION BABY A No. Cord Vessels: 3 Nuchal Cord : Around Neck x1, Tight Cord Blood Taken: Yes-For Eval (Mom's Blood Type - or O+) Suction: Mouth; Nose ASSESSMENT BABY A Skin to Skin: No Care By: TTwigg,RN BABY B INFORMATION : N/A SIGNATURES Assignment: Janette Joseph MD Signature: with User ID: [email or web address] : with User ID: Miles : I was personally available for consultation and serving as supervising physician for the MLP.
[2020-09-05] MEDS: FAMOTIDINE 20 MG TABLET PO SCH (21:19)
[2020-09-05] MEDS: IBUPROFEN 800 MG TABLET PO SCH (21:19)
[2020-09-05] MEDS ORDERED: IBUPROFEN 800 MG TABLET PO SCH (22:00)
[2020-09-05] MEDS ORDERED: FAMOTIDINE 20 MG TABLET PO SCH (22:00)
[2020-09-06] MEDS: IBUPROFEN 800 MG TABLET PO SCH ×3 (05:35→22:21)
[2020-09-06] MEDS: AMPICILLIN SODIUM 2 GM in NORMAL SALINE 100 ML IV SCH ×2 (05:36→11:08)
[2020-09-06 06:51] LABS: HEMATOCRIT 29.5 % (36.0-47.0); HEMOGLOBIN 10.1 g/dL (12.0-15.5); MEAN CORPUSCULAR HEMOGLOBIN 30.3 pg (27.0-33.4); MEAN CORPUSCULAR HGB CONC 34.2 g/dL (32.0-36.0); MEAN CORPUSCULAR VOLUME 89 fl (80-97); PLATELET COUNT 174 10^3/uL (150-450); RED BLOOD COUNT 3.33 10^6/uL (3.72-5.28); WHITE BLOOD COUNT 25.3 10^3/uL (4.0-10.5)
[2020-09-06] MEDS: DOCUSATE SODIUM 100 MG CAPSULE PO SCH ×2 (09:41→17:51)
[2020-09-06] MEDS: SENNOSIDES/DOCUSATE 8.6-50 MG 1 EACH TABLET PO SCH (09:41)
[2020-09-06] MEDS: FAMOTIDINE 20 MG TABLET PO SCH ×2 (09:41→22:21)
[2020-09-06] MEDS: FERROUS SULFATE 325 MG TABLET PO SCH ×2 (09:41→17:51)
[2020-09-06] MEDS: PRENATAL VITAMIN W DHA CAPSULE PO SCH (09:41)
[2020-09-06] MEDS ORDERED: SENNOSIDES/DOCUSATE 8.6-50 MG 1 EACH TABLET PO SCH (10:00)
[2020-09-06] MEDS ORDERED: PRENATAL VITAMIN W DHA CAPSULE PO SCH (10:00)
--- NOTE | 2020-09-06 14:28 | PDOC PROGRESS REPORT ---
Subjective-OB Progress Note for:: 09/06/20 Subjective: Pt doing well, no complaints. She is resting, bleeding is stable. Voiding w/o difficulty, and reports reg diet. Physical Exam (OB) Vital Signs: Temp Pulse Resp BP Pulse Ox 97.6 F 87 18 130/59 H 100 09/06/20 11:00 09/06/20 11:00 09/06/20 11:00 09/06/20 11:00 09/06/20 11:00 Intake & Output 09/05/20 09/06/20 09/07/20 06:59 06:59 06:59 Intake Total 765 1900 1200 Balance 765 1900 1200 Weight 101 kg - PIH/Pre-Eclampsia Clonus: Negative Headache: Absent Epigastric Pain: No Visual Changes: No - Maternal Morbidity 59. Maternal Morbidity (serious complications experinced by the mother associated with labor and delivery: None of the above - Lochia Lochia Amount: Scant < 10 ml Lochia Color: Rubra/Red - Abdomen Description: Soft, Round Hernia Present: No Fundal Description: Firm, Midline Fundal Height: u/u - u/2 Objective-Diagnostic Laboratory: 09/06/20 06:40 09/06/20 09/06/20 06:40 06:40 WBC 25.3 H RBC 3.33 L Hgb 10.1 L Hct 29.5 L MCV 89 MCH 30.3 MCHC 34.2 RDW 14.0 Plt Count 174 Blood Type Cancelled Assessment and Plan(PN) - Assessment and Plan (1) Excessive weight gain affecting Is this a current diagnosis for this admission?: Yes (2) Shoulder dystocia during labor and delivery, delivered Is this a current diagnosis for this admission?: Yes (3) Vaginal delivery Is this a current diagnosis for this admission?: Yes - Time Spent with Patient Time with patient: Less than 15 minutes Medications reviewed and adjusted accordingly: Yes - Disposition Anticipated Discharge Disposition: Home, Self Care Anticipated Discharge Timeframe: within 24 hours
[2020-09-07] MEDS: IBUPROFEN 800 MG TABLET PO SCH ×2 (06:21→14:00)
[2020-09-07 07:27] LABS: ABSOLUTE EOSINOPHILS # (AUTO) 0.2 10^3/uL (0.0-0.6); ABSOLUTE LYMPHOCYTES (AUTO) 3.4 10^3/uL (0.5-4.7); ABSOLUTE MONOCYTES (AUTO) 1.5 10^3/uL (0.1-1.4); ABSOLUTE NEUT (AUTO) 11.1 10^3/uL (1.7-8.2); BASOPHILS % (AUTO) 0.1 % (0-2); EOSINOPHILS % (AUTO) 1.4 % (0-6); HEMATOCRIT 26.9 % (36.0-47.0); HEMOGLOBIN 9.5 g/dL (12.0-15.5); MEAN CORPUSCULAR HEMOGLOBIN 30.9 pg (27.0-33.4); MEAN CORPUSCULAR HGB CONC 35.3 g/dL (32.0-36.0); MEAN CORPUSCULAR VOLUME 87 fl (80-97); PLATELET COUNT 159 10^3/uL (150-450); RED BLOOD COUNT 3.07 10^6/uL (3.72-5.28); RED CELL DISTRIBUTION WIDTH 14.1 % (11.5-14.0); SEGMENTED NEUTROPHILS % (AUTO) 68.5 % (42-78); TOTAL CELLS COUNTED % (AUTO) 100 %; WHITE BLOOD COUNT 16.2 10^3/uL (4.0-10.5)
[2020-09-07] MEDS: SENNOSIDES/DOCUSATE 8.6-50 MG 1 EACH TABLET PO SCH (09:47)
[2020-09-07] MEDS: FERROUS SULFATE 325 MG TABLET PO SCH (09:48)
[2020-09-07] MEDS: DOCUSATE SODIUM 100 MG CAPSULE PO SCH (09:48)
[2020-09-07] MEDS: PRENATAL VITAMIN W DHA CAPSULE PO SCH (09:48)
[2020-09-07] MEDS: FAMOTIDINE 20 MG TABLET PO SCH (09:48)
[2020-09-07 12:05] VITALS: BP 134/67
--- NOTE | 2020-09-07 12:30 | PDOC DISCHARGE SUMMARY ---
Impression - Admit/DC Date/PCP Admission Date/Primary Care Provider: 09/04/20 19:19 RAMU WETZEL MD Discharge Date: 09/07/20 - Discharge Diagnosis (1) Excessive weight gain affecting Is this a current diagnosis for this admission?: Yes (2) Shoulder dystocia during labor and delivery, delivered Is this a current diagnosis for this admission?: Yes (3) Vaginal delivery Is this a current diagnosis for this admission?: Yes - Additional Information Resuscitation Status: Full Code Discharge Diet: Regular Discharge Activity: Balance Activity w/Rest, Pelvic Rest Referrals: RAMU WETZEL MD [Primary Care Provider] - Prescriptions: Ibuprofen [Motrin 800 mg Tablet] 800 mg PO Q8HP PRN #60 tablet PRN Reason: Home Medications: No122/Iron/Folic Acid [ Multi Tablet] 1 tab PO DAILY 08/23/20 Ibuprofen [Motrin 800 mg Tablet] 800 mg PO Q8HP PRN #60 tablet 09/07/20 HPI Gestational Age: 40.2 Reason(s) for Admission: Onset of Labor Procedures: NST Intrapartum Procedure(s): Spontaneous Vaginal Delivery Intrapartum Procedure Note: Vacuum pulls x 2 Complication(s): Laceration-Vaginal Laceration-Degree: 1st Complication(s) Note: shoulder dystocia Hospital Course 59. Maternal Morbidity (serious complications experinced by the mother associated with labor and delivery: None of the above Results Laboratory Results: WBC 16.2 10^3/uL (4.0-10.5) H 09/07/20 06:25 RBC 3.07 10^6/uL (3.72-5.28) L 09/07/20 06:25 Hgb 9.5 g/dL (12.0-15.5) L 09/07/20 06:25 Hct 26.9 % (36.0-47.0) L 09/07/20 06:25 MCV 87 fl (80-97) 09/07/20 06:25 MCH 30.9 pg (27.0-33.4) 09/07/20 06:25 MCHC 35.3 g/dL (32.0-36.0) 09/07/20 06:25 RDW 14.1 % (11.5-14.0) H 09/07/20 06:25 Plt Count 159 10^3/uL (150-450) 09/07/20 06:25 Lymph % (Auto) 21.0 % (13-45) 09/07/20 06:25 Evans % (Auto) 9.0 % (3-13) 09/07/20 06:25 Eos % (Auto) 1.4 % (0-6) 09/07/20 06:25 Baso % (Auto) 0.1 % (0-2) 09/07/20 06:25 Absolute Neuts (auto) 11.1 10^3/uL (1.7-8.2) H 09/07/20 06:25 Absolute Lymphs (auto) 3.4 10^3/uL (0.5-4.7) 09/07/20 06:25 Absolute Monos (auto) 1.5 10^3/uL (0.1-1.4) H 09/07/20 06:25 Absolute Eos (auto) 0.2 10^3/uL (0.0-0.6) 09/07/20 06:25 Absolute Basos (auto) 0.0 10^3/uL (0.0-0.2) 09/07/20 06:25 Seg Neutrophils % 68.5 % (42-78) 09/07/20 06:25 Membranes Rupture NEGATIVE (NEGATIVE) 09/04/20 15:20 RPR NONREACTIVE (NONREACTIVE) 09/04/20 19:45 Blood Type Cancelled 09/06/20 06:40 Antibody Screen POSITIVE 09/04/20 19:45 Antibody Identification RHOGAM INDUCED ANTI-D 09/04/20 19:45 Screen Cancelled 09/06/20 06:40 Plan Plan of Treatment: f/u at [facility] Time Spent: Less than 30 Minutes
== END 2020-09-07 15:17 | disposition home or self-care (01) | DRG 806 ==
LOC: LC 15:09 → LR 19:19 → 2S 09-05 17:15
PROVIDERS: ADMIT Student in an Organized Health Care Education/Training Program; ATTEND Obstetrics & Gynecology
PROC: 10D07Z6 Extraction of Products of Conception, Vacuum, Via Natural or Artificial Opening (ICD-10-PCS; principal; 2020-09-05)
PROC: 0UQGXZZ Repair Vagina, External Approach (ICD-10-PCS; 2020-09-05)
PROC: 0HQ9XZZ Repair Perineum Skin, External Approach (ICD-10-PCS; 2020-09-05)
DX: O48.0 Post-term pregnancy (principal); O71.4 Obstetric high vaginal laceration alone; Z37.0 Single live birth; O69.1XX0 Labor and delivery complicated by cord around neck, with compression, not applicable or unspecified; O75.81 Maternal exhaustion complicating labor and delivery; O99.334 Smoking (tobacco) complicating childbirth; F17.210 Nicotine dependence, cigarettes, uncomplicated; Z86.19 Personal history of other infectious and parasitic diseases; Z3A.40 40 weeks gestation of pregnancy; O26.03 Excessive weight gain in pregnancy, third trimester; O66.0 Obstructed labor due to shoulder dystocia; O70.0 First degree perineal laceration during delivery
CPT/HCPCS: 1967; 36415; 84112; 85025; 85027; 86592; 86850; 86870; 86900; 86901; 88307; 94760; J0131; J0290; J2590; J2795; J3010; J3490; J7050